=== PATIENT | male | born 1965 | race Caucasian/White ===

== ENCOUNTER 2023-03-20 13:06 | Inpatient (IN) | payer OTHER ==
[2023-03-20] MEDS ORDERED: MAGNESIUM HYDROXIDE 2,400 MG/10 ML CUP PO PRN (13:20)
[2023-03-20] MEDS ORDERED: LORazepam 1 MG TAB PO PRN (13:20)
[2023-03-20] MEDS ORDERED: haloperidoL 5 MG TAB PO PRN (13:20)
[2023-03-20] MEDS ORDERED: MAG HYDROX/AL HYDROX/SIMETH 30 ML CUP PO PRN (13:20)
[2023-03-20] MEDS ORDERED: HALOPERIDOL LACTATE 5 MG/ML 1 ML VIAL IM PRN (13:20)
[2023-03-20] MEDS: ACETAMINOPHEN TAB 325 MG TAB PO PRN (18:37)
[2023-03-20] MEDS: LORazepam 1 MG TAB PO PRN (18:42)
[2023-03-20] MEDS ORDERED: ATORVASTATIN 20 MG TAB PO SCH (21:00)
--- NOTE | 2023-03-21 00:31 | P.CONS ---
History of Present Illness - Reason for Consult Consult date: 03/21/23 - History of Present Illness The patient is a 57-year-old male with a PMH of hypertension, hyperlipidemia, EtOH abuse transferred from [facility] where the patient had presented for alcohol abuse and suspected overdose in a suicide attempt. The patient reports that he had been sober from alcohol for 7 years and had a recent relapse. He plans on staying sober. He denied tobacco or substance use. He did not wish to elaborate how much he drank. He denied any physical complaints at the time of interview. He denied experiencing chest discomfort, shortness of breath, fever, chills, cough, nausea, vomiting, abdominal pain, diarrhea. Review of systems: Pertinent positives and negatives as discussed in HPI, a complete review of systems was performed and all other systems are negative. Physical examination: General: non toxic, no distress, appears at stated age, normal weight Derm: no unusual rashes/lesions, no unusual ecchymoses, warm, dry Head: atraumatic, normocephalic, symmetric Eyes: EOMI, no lid lag, anicteric sclera ENT: Nose and ears atraumatic, no thrush, no pharyngeal erythema Neck: trachea midline, supple Mouth: no lip lesion, mucus membranes moist Cardiovascular: S1S2 reg, no murmur, no edema Lungs: CTA bilateral, no rhonchi, no rales , no accessory muscle use Abdominal: soft, nontender to palpation, no guarding Ext: no gross muscle atrophy, no contractures, Neuro: No gross focal neuro deficits noted Psych: Alert, oriented, appropriate affect Assessment: Chronic conditions: Hypertension, hyperlipidemia Alcohol abuse Overdose Plan: Strongly advised patient on importance of cessation Defer management of overdose and possible suicidal ideation to primary psychiatry service Thank you for allowing us to participate in the care of this patient. We will follow peripherally. Do not hesitate to contact us with questions. Someone can be reached from the [facility] hospitalist group at all hours of the day at [phone]. Past Medical History Past Medical History: Hypertension Additional Past Medical History / Comment(s): hernia, HTN, R knee replacement, R foot surgery History of Any Multi-Drug Resistant Organisms: None Reported Past Psychological History: Anxiety, Depression Additional Psychological History / Comment(s): clean and sober for 7 years, relaspe on Mother's Day 2022, with suicidal intent Smoking Status: Never smoker Past Alcohol Use History: Daily Additional Past Alcohol Use History / Comment(s): clean for 7 years, relapse Past Drug Use History: None Reported Medications and Allergies Home Medications Medication Instructions Recorded Confirmed Type ALPRAZolam [Xanax] 0.25 mg PO DIRECTED PRN 03/20/23 03/20/23 History Atorvastatin [Lipitor] 20 mg PO HS 03/20/23 03/20/23 History Butalb/APAP/Caff 50-325-40Mg 1 tab PO Q4H PRN 03/20/23 03/20/23 History [Fioricet 50-325-40] FLUoxetine HCL [PROzac] 20 mg PO DAILY 03/20/23 03/20/23 History HYDROcodone/APAP 5-325MG [[place] 1 tab PO Q8H PRN 03/20/23 03/20/23 History 5-325] Irbesartan 300 mg PO DAILY 03/20/23 03/20/23 History Omeprazole 20 mg PO BID 03/20/23 03/20/23 History Ondansetron Odt [Zofran Odt] 4 mg PO Q6H PRN 03/20/23 03/20/23 History Pravastatin Sodium [Pravachol] 20 mg PO DAILY 03/20/23 03/20/23 History SUMAtriptan succinate [Imitrex] 100 mg PO DAILY PRN 03/20/23 03/20/23 History Spironolactone [Aldactone] 25 mg PO DAILY 03/20/23 03/20/23 History Testosterone [Androgel 1.62%] 1 pump TRANSDERM DAILY 03/20/23 03/20/23 History Thiamine [Vitamin B-1] 100 mg PO DAILY 03/20/23 03/20/23 History amLODIPine [Norvasc] 5 mg PO DAILY 03/20/23 03/20/23 History buPROPion XL [Wellbutrin XL] 150 mg PO DAILY 03/20/23 03/20/23 History Allergies Allergy/AdvReac Type Severity Reaction Status Date / Time peanut Allergy Anaphylaxis Verified 03/20/23 15:42 Physical Exam Vitals: Vital Signs Temp Pulse Resp BP Pulse Ox 03/20/23 15:31 98 F 100 16 150/97 03/20/23 15:02 98 F 100 16 150/97 96 Intake and Output 03/20/23 03/20/23 03/21/23 14:59 22:59 06:59 Other: Weight 122.2 kg 122.2 kg
[2023-03-21 05:36] VITALS: BP 141/92; PULSE 89; RESP 18; TEMP 98.3
[2023-03-21] MEDS: ACETAMINOPHEN TAB 325 MG TAB PO PRN (05:36)
[2023-03-21] MEDS: LORazepam 1 MG TAB PO PRN (06:03)
[2023-03-21] MEDS ORDERED: NICOTINE 14MG/24HR PATCH TRANSDERM SCH (09:00)
[2023-03-21] MEDS ORDERED: amLODIPine 5 MG TAB PO SCH (09:00)
[2023-03-21] MEDS ORDERED: SPIRONOLACTONE 25 MG TAB PO SCH (09:00)
[2023-03-21] MEDS ORDERED: THIAMINE 100 MG TAB PO SCH (09:00)
[2023-03-21] MEDS ORDERED: FLUoxetine HCL 10 MG CAP PO STA (11:36)
--- NOTE | 2023-03-21 14:04 | P.HP ---
Psychiatric H&P - . H&P Date: 03/21/23 History & Physical: Allergies Allergy/AdvReac Type Severity Reaction Status Date / Time peanut Allergy Anaphylaxis Verified 03/20/23 15:42 Vital Signs Temp 98.3 F 03/21/23 05:36 Pulse 89 03/21/23 05:36 Resp 18 03/21/23 05:36 BP 141/92 03/21/23 05:36 Pulse Ox 96 03/21/23 05:36 FiO2 Intake & Output 03/20/23 03/21/23 03/21/23 18:59 06:59 18:59 Weight 122.2 kg 03/21/23 14:04 IDENTIFYING DATA: Patient is a , employed, 57-year-old male with significant history of alcohol use disorder who presents for hospital from [facility] under petition and certification for suicidal ideation and recent attempt. HPI: Patient presented to the hospital on 03/20/2023, transferred from our hospital from [facility] after a possible suicide attempt. Patient initial ly presented to [facility] in 03/19/2023 after reportedly attempting suicide by overdosing on Seroquel and alcohol. He was found outside his vehicle at his home on the ground. According to EMS, the patient was making statements earlier about wanting to harm himself while on route to the hospital. The patient was petitioned and certified and subsequently transferred to [facility]. Upon admission on to the psychiatric unit, the patient is vehemently denying any suicidal or homicidal ideation, intention, and/or plan. The patient reports that he has been increasingly stressed out in regards to his nephew who recently inherited a lot of money and property however is not competent enough to make financial decisions for himself. The patient reports that he has been increasingly stressed out because of this. He has been sober for 7 years however relapsed into drinking alcohol since Mother's Day. Prior to his admission, patient was discovered by his vehicle to be passed out. As per discussion with the patient's and daughter, the patient did not ingest any of the Zzyquil that was next to him. He did reportedly attempt to kill himself by drinking himself to on Mother's Day. The patient reports no other prior attempts at suicide. He is denying any significant symptoms of depression and is not endorsing any crying episodes, anhedonia, change in a ppetite, or change in sleep. He reports no significant symptoms of jarek or hypomania. He reports no auditory or visual hallucinations. He denies any paranoia or other delusions. Collateral information was obtained by the patient's Khushi and his daughter Viv after the patient signed a release of information. Although they do express concern for the patient's mental health and his recent relapse into alcohol use, the patient's expresses that she would prefer if the patient would continue treatment in the outpatient setting and return home. A family meeting took place over the phone when we discussed the risks, treatment alternatives, and benefits of inpatient versus outpatient treatment. The patient was counseled at great length that alcohol is a precipitant for his d epression and suicidal ideation. Patient's family also reports that the patient has no access to firearms or other weapons. PAST PSYCHIATRIC HISTORY: Patient states that he has been previously diagnosed with depression. His home medications include Wellbutrin, Xanax, and Prozac. The patient reports that this is his first inpatient psychiatric admission. Patient denies any psychiatric outpatient follow-up. He reports one prior attempt at suicide by drinking himself to on Mother's Day of this year. PMH: Past Medical History: Hypertension Additional Past Medical History / Comment(s): hernia, HTN, R knee replacement, R foot surgery History of Any Multi-Drug Resistant Organisms: None Reported Past Psychological History: Anxiety, Depression Additional Psychological History / Comment(s): clean and sober for 7 years, relaspe on Mother's Day 2022, with suicidal intent Smoking Status: Never smoker Past Alcohol Use History: Daily Additional Past Alcohol Use History / Comment(s): clean for 7 years, relapse Past Drug Use History: None Reported ALLERGIES: Peanut CHEMICAL DEPENDENCY HISTORY: The patient reports that he has been drinking up between a pint to a fifth of liquor per day since he relapsed into alcohol use . He reportedly has been sober for 7 years prior to this. This is confirmed by his . He reports no tobacco use. He denies any marijuana use. He reports no illicit drug use. FAMILY PSYCHIATRIC/SUBSTANCE USE HISTORY: The patient's brother committed suicide. SOCIAL HISTORY: Patient was born and raised in [place]. He is to his Khushi and they have 3 adult children. He denies any legal issues. He reports no history. He has his own guardian. [place] His children [place]. MENTAL STATUS EXAM: General Appearance: Patient appears to be stated age is alert, directable, and attempts to cooperate. Patient appears to have fair hygiene and grooming. Behavior: Patient is seated without any agitated behavior. Eye contact is appropriate. Speech: Patient's speech is fluent and nonpressured. Mood/Affect: Patient reports their mood is "I really don't need to be here," affect is euthymic. Suicidality/Homicidality: Patient vehemently denies any suicidal or homicidal ideation. Perceptions: Patient denies any visual hallucinations and denies any auditory hallucinations Though content/process: There is no evidence of any delusional thought content and thought process is linear and goal-directed. Memory and concentration: AOX3, grossly intact for the purposes of this session. Can spell "WORLD" backwards Judgment and insight: Fair STRENGTHS/WEAKNESSES: Strength is that the patient has a very supportive family, is gainfully employed, and has mormonism place and suicide. Weakness that patient recently relapsed into alcohol use. 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 The patient also signed an AMA form for discharge. We discussed at length the risks, benefits, and treatment alternatives of inpatient psychiatric hospitalization versus outpatient treatment. Furthermore, safety planning could occur with the patient's and daughter. The patient has no access to firearms or other weapons. The patient's reports that she would be able to supervise him. They wish to have him home for the . -The patient has protective factors against suicide including mormonism beliefs against suicide, no access to firearms or other weapons, strong supportive family. Risk factors include age and sex demographic and alcohol use. -Medications : We will increase Prozac to 30 mg by mouth daily for depression/anxiety Discussed options of starting naltrexone, acamprosate, or Antabuse. Patient is not interested in starting any medications for alcohol cessation at this time. -Ativan PRN for agitation/aggression -Patient was counselled on substance abuse and desired to cut back on use -Internal Medicine consult to perform medical evaluation and physical. -SW on board for discharge planning. Encourage patient to participate in groups to work on coping skills. -After significant discussion with the patient and his family. We will discharge the patient in order to encourage patient autonomy and after significant safety planning did occur. 03/21/23 14:04
--- NOTE | 2023-03-21 14:09 | P.DS ---
Providers Date of admission: 03/20/23 14:26 Expected date of discharge: 03/21/23 Attending physician: Pepe Coon MD Consults: 03/20/23 18:09 Consult Physician Routine Consulting Provider: Vanessa Parker Consult Reason/Comments: H & P and medication/medical management Do you want consulting provider notified?: Already Contacted Primary care physician: Stated None - Discharge Diagnosis(es) (1) Alcohol-induced depressive disorder with onset during intoxication Current Visit: Yes Status: Acute Priority: High (2) Adjustment disorder with mixed anxiety and depressed mood Current Visit: Yes Status: Acute Priority: High (3) Alcohol use disorder Current Visit: Yes Status: Acute Priority: High Hospital Course: Admission HPI: Patient is a , employed, 57-year-old male with significant history of alcohol use disorder who presents for hospital from [facility] under petition and certification for suicidal ideation and recent attempt. Patient presented to the hospital on 03/20/2023, transferred from our hospital from [facility] after a possible suicide attempt. Patient initially presented to [facility] in 03/19/2023 after reportedly attempting suicide by overdosing on Seroquel and alcohol. He was found outside his vehicle at his home on the ground. According to EMS, the patient was making statements earlier about wanting to harm himself while on route to the hospital. The patient was petitioned and certified and subsequently transferred to [facility]. Upon admission on to the psychiatric unit, the patient is vehemently denying any suicidal or homicidal ideation, intention, and/or plan. The patient reports that he has been increasingly stressed out in regards to his nephew who recently inherited a lot of money and property however is not competent enough to make financial decisions for himself. The patient reports that he has been increasingly stressed out because of this. He has been sober for 7 years however relapsed into drinking alcohol since Mother's Day. Prior to his admission, patient was discovered by his vehicle to be passed out. As per discussion with the patient's and daughter, the patient did not ingest any of the Zzyquil that was next to him. He did reportedly attempt to kill himself by drinking himself to on Mother's Day. The patient reports no other prior attempts at suicide. He is denying any significant symptoms of depression and is not endorsing any crying episodes, anhedonia, change in appetite, or change in sleep. He reports no significant symptoms of jarek or hypomania. He reports no auditory or visual hallucinations. He denies any paranoia or other delusions. Collateral information was obtained by the patient's Khushi and his daughter Viv after the patient signed a release of information. Although they do express concern for the patient's mental health and his recent relapse into alcohol use, the patient's expresses that she would prefer if the patient would continue treatment in the outpatient setting and return home. A family meeting took place over the phone when we discussed the risks, treatment alternatives, and benefits of inpatient versus outpatient treatment. The patient was counseled at great length that alcohol is a precipitant for his depression and suicidal ideation. Patient's family also reports that the patient has no access to firearms or other weapons. Patient states that he has been previously diagnosed with depression. His home medications include Wellbutrin, Xanax, and Prozac. The patient reports that this is his first inpatient psychiatric admission. Patient denies any psychiatric outpatient follow-up. He reports one prior attempt at suicide by drinking himself to on Mother's Day of this year. Hospital course: Upon admission to the unit patient was initially presented as euthymic however minimized his symptoms of depression and recent suicide attempt. Patient however was agreeable to starting medications. He was continued on his Prozac which was increased and his Wellbutrin was discontinued due to risk for seizure. The patient expresses strong desire for discharge. After been converted to a voluntary admission, the patient signed AMA. Collateral information was obtained by the patient's and daughter. They report that the patient did not overdose on any of the Zzquil however has relapsed into heavy alcohol use. The patient's reports that she is able to supervise him and would prefer that he return home and continue treatment in the outpatient setting. The risks, benefits, and alternatives of treatment were discussed with the patient and his family. In order to maintain patient autonomy, the patient was granted discharge today. The patient and his family were also educated at great length on his risk factors for suicide which include alcohol, age and gender demographic, and ongoing stressors. The patient acknowledges that alcohol is the precipitant. The family and the patient wished to pursue treatment in the outpatient setting. Mental status exam: General Appearance: Patient appears to be stated age is alert, directable, and attempts to cooperate. Patient appears to have fair hygiene and grooming. Behavior: Patient is seated without any agitated behavior. Eye contact is appropriate. Speech: Patient's speech is fluent and nonpressured. Mood/Affect: Patient reports their mood is "I really don't need to be here," affect is euthymic. Suicidality/Homicidality: Patient vehemently denies any suicidal or homicidal ideation. Perceptions: Patient denies any visual hallucinations and denies any auditory hallucinations Though content/process: There is no evidence of any delusional thought content and thought process is linear and goal-directed. Memory and concentration: AOX3, grossly intact for the purposes of this session. Can spell "WORLD" backwards Judgment and insight: Fair Impression: Alcohol-induced depressive disorder Adjustment disorder with depressed mood and anxiety Alcohol use disorder Plan: -Continue with discharge today as patient has improved and stabilized psychiatrically and is not currently an imminent threat to himself and/or others. Patient will remain at chronically elevated risk for harm to self and/or others due to his impulsivity and alcohol abuse. -Continue medications: Prozac 30 mg daily for depression/anxiety -Patient was counseled on the need for medication compliance and appropriate follow-up at mental health and also primary care for medical issues. Patient verbalized understanding and agreed. -The patient has protective factors against suicide including religion beliefs against suicide, no access to firearms or other weapons, strong supportive family. Risk factors include age and sex demographic and alcohol use. -Social work to arrange for and conduct family meeting to ensure safety upon discharge and answer any questions/concerns. Social work also to arrange for patients follow up appointments for psychiatric care along with follow up with primary care provider. -Patient counseled on abstaining from recreational drugs and marijuana and alcohol. Was informed/educated on the adverse effects on their physical and mental health. Patient verbally agreed and understood. Patient was offered substance abuse treatment however declined at this time. -Patient was instructed to return to the hospital or seek immediate medical care if their psychiatric or medical symptoms do worsen or reoccur. -Psychoeducation and supportive therapy provided to patient. Risks and benefits of pharmacological treatment versus the risks and benefits of nontreatment weighed and discussed. Informed consent discussion held. Common side effects of psychotropics discussed such as, but not limited to headache, GI disturbance, sexual dysfunction, movement disorders, sedation, and orthostatic hypotension. Life threatening and blackbox warnings of prescribed medications also discussed. Potential risks of operating a vehicle or heavy machinery discussed with patient at length. Advised on importance of compliance and a reliable and responsible manner. Patient advised to review FDA consumer labeling of all medications prior to taking. Patient verbalized understanding of potential risks, and agrees with current treatment plan. Patient advised to medically contact physician/emergency personnel if any acute changes in condition occur. Vital Signs Temp 98.3 F 03/21/23 05:36 Pulse 89 03/21/23 05:36 Resp 18 03/21/23 05:36 BP 141/92 03/21/23 05:36 Pulse Ox 96 03/21/23 05:36 FiO2 Intake & Output 03/20/23 03/21/23 03/21/23 18:59 06:59 18:59 Weight 122.2 kg Allergies Allergy/AdvReac Type Severity Reaction Status Date / Time peanut Allergy Anaphylaxis Verified 03/20/23 15:42 Patient Condition at Discharge: Stable Plan - Discharge Summary Discharge Rx Participant: Yes New Discharge Prescriptions: New FLUoxetine HCL [PROzac] 30 mg PO DAILY 30 Days #90 cap Continue Spironolactone [Aldactone] 25 mg PO DAILY Thiamine [Vitamin B-1] 100 mg PO DAILY Testosterone [Androgel 1.62%] 1 pump TRANSDERM DAILY Pravastatin Sodium [Pravachol] 20 mg PO DAILY Irbesartan 300 mg PO DAILY Atorvastatin [Lipitor] 20 mg PO HS amLODIPine [Norvasc] 5 mg PO DAILY SUMAtriptan succinate [Imitrex] 100 mg PO DAILY PRN PRN Reason: Migraine Headache Ondansetron Odt [Zofran ODT] 4 mg PO Q6H PRN PRN Reason: Nausea Omeprazole 20 mg PO BID Butalb/APAP/Caff 50-325-40Mg [Fioricet 50-325-40] 1 tab PO Q4H PRN PRN Reason: Migraine Headache ALPRAZolam [Xanax] 0.25 mg PO DIRECTED PRN PRN Reason: 1 hour prior to MRI Discontinued buPROPion XL [Wellbutrin XL] 150 mg PO DAILY HYDROcodone/APAP 5-325MG [[place] 5-325] 1 tab PO Q8H PRN PRN Reason: Pain FLUoxetine HCL [PROzac] 20 mg PO DAILY Discharge Medication List ALPRAZolam [Xanax] 0.25 mg PO DIRECTED PRN 03/20/23 [History] Atorvastatin [Lipitor] 20 mg PO HS 03/20/23 [History] Butalb/APAP/Caff 50-325-40Mg [Fioricet 50-325-40] 1 tab PO Q4H PRN 03/20/23 [History] Irbesartan 300 mg PO DAILY 03/20/23 [History] Omeprazole 20 mg PO BID 03/20/23 [History] Ondansetron Odt [Zofran ODT] 4 mg PO Q6H PRN 03/20/23 [History] Pravastatin Sodium [Pravachol] 20 mg PO DAILY 03/20/23 [History] SUMAtriptan succinate [Imitrex] 100 mg PO DAILY PRN 03/20/23 [History] Spironolactone [Aldactone] 25 mg PO DAILY 03/20/23 [History] Testosterone [Androgel 1.62%] 1 pump TRANSDERM DAILY 03/20/23 [History] Thiamine [Vitamin B-1] 100 mg PO DAILY 03/20/23 [History] amLODIPine [Norvasc] 5 mg PO DAILY 03/20/23 [History] FLUoxetine HCL [PROzac] 30 mg PO DAILY 30 Days #90 cap 03/21/23 [Rx] Activity/Diet/Wound Care/Special Instructions: Avoid the use of street drugs and alcohol. Take all medications as prescribed. When you are in need of refills on your medications, please contact your medical provider and/or outpatient psychiatrist to have this done. Please go to scheduled outpatient appointments for aftercare treatment. If symptoms return or become worse, call the crisis line at and/or go to the nearest emergency room for evaluation. Discharge Disposition: HOME SELF-CARE
[2023-03-22] MEDS ORDERED: FLUoxetine HCL 10 MG CAP PO SCH (09:00)
== END 2023-03-21 17:55 | disposition home or self-care (01) | DRG 897 ==
LOC: 3MHU 14:26
PROVIDERS: ADMIT Psychiatry & Neurology Psychiatry; ATTEND Psychiatry & Neurology Psychiatry
DX: F10.229 Alcohol dependence with intoxication, unspecified (principal); R45.851 Suicidal ideations; F10.24 Alcohol dependence with alcohol-induced mood disorder; Z71.41 Alcohol abuse counseling and surveillance of alcoholic; Z91.010 Allergy to peanuts; F43.23 Adjustment disorder with mixed anxiety and depressed mood; Z87.19 Personal history of other diseases of the digestive system; Z96.651 Presence of right artificial knee joint

== ENCOUNTER 2023-08-29 12:30 | Emergency (ER) | payer OTHER ==
[2023-08-29 13:23] VITALS: RESP 18; TEMP 97.2
--- NOTE | 2023-08-29 13:35 | ED ---
Psych HPI <Frankie Rojas - Last Filed: 08/31/23 11:44> - General Source: police, RN notes reviewed, old records reviewed Mode of arrival: EMS Limitations: no limitations - History of Present Illness MD Complaint: suicidal ideation, feels depressed, altered mental status -: unknown Associated Psychiatric Symptoms: depression, suicidal ideation, homicidal ideation, racing thoughts History of same: Yes Quality: constant Improves With: none, medication Context: recent alcohol abuse Associated Symptoms: denies other symptoms Treatments Prior to Arrival: placed on mental health hold If Self Harm: admits thoughts of self harm <Frankie Palacios - Last Filed: 09/02/23 03:33> - General Chief Complaint: Psychiatric Symptoms Stated Complaint: Petitioned Time Seen by Provider: 08/29/23 12:40 - History of Present Illness Initial Comments: This is a 57-year-old male to the ER for evaluation today. Patient presents today for evaluation regards to psychiatric illness. Patient was found to be possibly passed out at his house outside. He states he was cutting his lawn but EMS found patient on the ground. Patient was difficult to arouse and respond so they ended up bringing the patient into be significantly violent during trans port. Patient was difficult to redirect, states that he has been making suicidal threats as well as she is at concern for herself forever she is around him (Frankie Palacios) - Related Data Home Medications Medication Instructions Recorded Confirmed Irbesartan 300 mg PO DAILY 03/20/23 08/29/23 Omeprazole 20 mg PO BID 03/20/23 08/29/23 Pravastatin Sodium [Pravachol] 20 mg PO DAILY 03/20/23 08/29/23 SUMAtriptan succinate [Imitrex] 100 mg PO DAILY PRN 03/20/23 08/29/23 Spironolactone [Aldactone] 25 mg PO DAILY 03/20/23 08/29/23 Testosterone [Androgel 1.62%] 2 pump TOPICAL DAILY 03/20/23 08/29/23 amLODIPine [Norvasc] 5 mg PO DAILY 03/20/23 08/29/23 FLUoxetine HCL [PROzac] 40 mg PO DAILY 08/29/23 08/29/23 Metoclopramide [Reglan] 5 mg PO TID PRN 08/29/23 08/29/23 Propranolol [Inderal] 20 mg PO BID 08/29/23 08/29/23 Topiramate [Topamax] 50 mg PO BID 08/29/23 08/29/23 buPROPion XL [Wellbutrin XL] 150 mg PO DAILY 08/29/23 08/29/23 modafiniL [Provigil] 100 mg PO DAILY 08/29/23 08/29/23 Allergies Allergy/AdvReac Type Severity Reaction Status Date / Time peanut Allergy Anaphylaxis Verified 08/29/23 15:48 Review of Systems ROS Other: All systems not noted in ROS Statement are negative. <Frankie Rojas - Last Filed: 08/31/23 11:44> ROS Other: All systems not noted in ROS Statement are negative. <Frankie Palacios - Last Filed: 09/02/23 03:33> ROS Statement: Those systems with pertinent positive or pertinent negative responses have been documented in the HPI. Past Medical History Past Medical History: Hypertension Additional Past Medical History / Comment(s): hernia, HTN, R knee replacement, R foot surgery History of Any Multi-Drug Resistant Organisms: None Reported Past Psychological History: Anxiety, Depression Smoking Status: Never smoker Past Alcohol Use History: Daily Past Drug Use History: None Reported <Frankie Palacios - Last Filed: 09/02/23 03:33> General Exam Limitations: altered mental status General appearance: alert, in no apparent distress Head exam: Present: atraumatic, normocephalic, normal inspection Eye exam: Present: normal appearance, PERRL, EOMI. Absent: scleral icterus, conjunctival injection, periorbital swelling ENT exam: Present: normal exam, mucous membranes moist Neck exam: Present: normal inspection. Absent: tenderness, meningismus, lymphadenopathy Respiratory exam: Present: normal lung sounds bilaterally. Absent: respiratory distress, wheezes, rales, rhonchi, stridor Cardiovascular Exam: Present: regular rate, normal rhythm, normal heart sounds. Absent: systolic murmur, diastolic murmur, rubs, gallop, clicks GI/Abdominal exam: Present: soft, normal bowel sounds. Absent: distended, tenderness, guarding, rebound, rigid Extremities exam: Present: normal inspection, full ROM, normal capillary refill. Absent: tenderness, pedal edema, joint swelling, calf tenderness Back exam: Present: normal inspection Neurological exam: Present: alert, oriented X3, CN II-XII intact Psychiatric exam: Present: normal affect, normal mood Skin exam: Present: warm, dry, intact, normal color. Absent: rash <Frankie Palacios - Last Filed: 09/02/23 03:33> Course <Frankie Palacios - Last Filed: 09/02/23 03:33> Vital Signs 08/29/23 08/30/23 08/30/23 12:32 08:00 11:00 Temperature 97.2 F L Pulse Rate 96 93 Respiratory 18 18 18 Rate Blood Pressure 150/104 143/81 O2 Sat by Pulse 98 97 Oximetry 08/30/23 08/30/23 08/30/23 12:00 13:41 15:04 Temperature Pulse Rate 93 90 77 Respiratory 18 18 18 Rate Blood Pressure 121/58 O2 Sat by Pulse 98 97 98 Oximetry 08/30/23 08/30/23 08/30/23 16:12 16:35 18:00 Temperature Pulse Rate 81 80 77 Respiratory 18 18 18 Rate Blood Pressure 152/89 O2 Sat by Pulse 98 97 Oximetry 08/30/23 08/31/23 08/31/23 18:58 03:59 09:28 Temperature Pulse Rate 71 68 87 Respiratory 18 18 18 Rate Blood Pressure 134/77 118/75 O2 Sat by Pulse 97 95 Oximetry - Reevaluation(s) Reevaluation #1: 08/29/23 15:21 Medical records reviewed (Frankie Palacios) Procedures - Restraint - Face to Face Restraint Occurrence 1 Patient's Immediate Situation: Endangers self safety, Endangers others' safety, Endangers staff safety, Violent behavior Patient's Reaction to the Intervention: Uncooperative, Angry, Hostile, Belligerent Patient's Medical & Behavioral Condition: Awake Need to Continue or Terminate Restraint or Seclusion: Continue Face to Face Eval of Restraint Date: 08/29/23 Face to Face Eval of Restraint Time: 12:45 <Frankie Palacios - Last Filed: 09/02/23 03:33> Medical Decision Making - Lab Data Result diagrams: 08/29/23 15:37 08/31/23 06:38 <Frankie Rojas - Last Filed: 08/31/23 11:44> - Lab Data Result diagrams: 08/29/23 15:37 08/31/23 06:38 - EKG Data -: EKG Interpreted by Me (EKG is sinus tachycardia 103 NM 200 QRS 106 QTC 393) <Frankie Palacios - Last Filed: 09/02/23 03:33> - Medical Decision Making Was patient admitted / discharged? Hospital course, mention meds given and route, prescriptions, significant lab abnormalities, going to OR and other pertinent info. @ -She was evaluated by the psychiatric team and they determined the patient n eeded to be admitted patient will be transferred to a facility outside hospital Undiagnosed new problem with uncertain prognosis? @ -[No] Drug Therapy requiring intensive monitoring for toxicity (Heparin, Nitro, Insulin, Cardizem)? @ -[No] Were any procedures done? @ -[No] Diagnosis/symptom? @ -Ideations, alcohol intoxication, alcohol abuse Acute, or Chronic, or Acute on Chronic? @ -Acute Uncomplicated (without systemic symptoms) or Complicated (systemic symptoms)? @ -[default] Side effects of treatment? @ -[No] Exacerbation, Progression, or Severe Exacerbation? @ -[No] Poses a threat to life or bodily function? How? (Chest pain, USA, LA, pneumonia, PE, COPD, DKA, ARF, appy, cholecystitis, CVA, Diverticulitis, Homicidal, Suicidal, threat to staff... and all critical care pts) @ -[No] I filled out a clinical certification for this patient so that he could be transferred to a psychiatric facility for suicidal ideations. (Frankie Rojas) - Lab Data Lab Results 08/29/23 08/29/23 08/29/23 Range/Units 15:37 15:37 15:37 WBC 12.1 H (3.8-10.6) k/uL RBC 5.14 (4.30-5.90) m/uL Hgb 15.7 (13.0-17.5) gm/dL Hct 45.9 (39.0-53.0) % MCV 89.3 (80.0-100.0) fL MCH 30.6 (25.0-35.0) pg MCHC 34.3 (31.0-37.0) g/dL RDW 12.5 (11.5-15.5) % Plt Count 404 (150-450) k/uL MPV 6.6 Neutrophils % 80 % Lymphocytes % 15 % Monocytes % 4 % Eosinophils % 1 % Basophils % 0 % Neutrophils # 9.6 H (1.3-7.7) k/uL Lymphocytes # 1.8 (1.0-4.8) k/uL Monocytes # 0.4 (0-1.0) k/uL Eosinophils # 0.2 (0-0.7) k/uL Basophils # 0.0 (0-0.2) k/uL PT 10.8 (10.0-12.5) sec INR 1.0 (<1.2) APTT 22.4 (22.0-30.0) sec Sodium 137 (137-145) mmol/L Potassium 4.0 (3.5-5.1) mmol/L Chloride 100 (98-107) mmol/L Carbon Dioxide 19 L (22-30) mmol/L Anion Gap 18 mmol/L BUN 17 (9-20) mg/dL Creatinine 0.90 (0.66-1.25) mg/dL Est GFR (CKD-EPI)AfAm >90 (>60 ml/min/1.73 sqM) Est GFR (CKD-EPI)NonAf >90 (>60 ml/min/1.73 sqM) Glucose 126 H (74-99) mg/dL Lactic Ac Sepsis Rflx Plasma Lactic Acid Wily (0.7-2.0) mmol/L Calcium 9.5 (8.4-10.2) mg/dL Phosphorus 3.6 (2.5-4.5) mg/dL Magnesium 1.8 (1.6-2.3) mg/dL Total Bilirubin 0.7 (0.2-1.3) mg/dL AST 30 (17-59) U/L ALT 29 (4-49) U/L Alkaline Phosphatase 93 (38-126) U/L Troponin I (0.000-0.034) ng/mL Total Protein 7.7 (6.3-8.2) g/dL Albumin 4.7 (3.5-5.0) g/dL Urine Color Urine Appearance (Clear) Urine pH (5.0-8.0) Ur Specific [place] (1.001-1.035) Urine Protein (Negative) Urine Glucose (UA) (Negative) Urine Ketones (Negative) Urine Blood (Negative) Urine Nitrite (Negative) Urine Bilirubin (Negative) Urine Urobilinogen (<2.0) mg/dL Ur Leukocyte Esterase (Negative) Urine WBC (0-5) /hpf Calcium Oxalate Crystal (None) /hpf Urine Mucus (None) /hpf Urine Opiates Screen (NotDetected) Ur Oxycodone Screen (NotDetected) Urine Methadone Screen (NotDetected) Ur Propoxyphene Screen (NotDetected) Ur Barbiturates Screen (NotDetected) U Tricyclic Antidepress (NotDetected) Ur Phencyclidine Scrn (NotDetected) Ur Amphetamines Screen (NotDetected) U Methamphetamines Scrn (NotDetected) U Benzodiazepines Scrn (NotDetected) Urine Cocaine Screen (NotDetected) U Marijuana (THC) Screen (NotDetected) Serum Alcohol 137 mg/dL Coronavirus (PCR) (Not Detectd) 08/29/23 08/29/23 08/29/23 Range/Units 15:37 15:37 15:37 WBC (3.8-10.6) k/uL RBC (4.30-5.90) m/uL Hgb (13.0-17.5) gm/dL Hct (39.0-53.0) % MCV (80.0-100.0) fL MCH (25.0-35.0) pg MCHC (31.0-37.0) g/dL RDW (11.5-15.5) % Plt Count (150-450) k/uL MPV Neutrophils % % Lymphocytes % % Monocytes % % Eosinophils % % Basophils % % Neutrophils # (1.3-7.7) k/uL Lymphocytes # (1.0-4.8) k/uL Monocytes # (0-1.0) k/uL Eosinophils # (0-0.7) k/uL Basophils # (0-0.2) k/uL PT (10.0-12.5) sec INR (<1.2) APTT (22.0-30.0) sec Sodium (137-145) mmol/L Potassium (3.5-5.1) mmol/L Chloride (98-107) mmol/L Carbon Dioxide (22-30) mmol/L Anion Gap mmol/L BUN (9-20) mg/dL Creatinine (0.66-1.25) mg/dL Est GFR (CKD-EPI)AfAm (>60 ml/min/1.73 sqM) Est GFR (CKD-EPI)NonAf (>60 ml/min/1.73 sqM) Glucose (74-99) mg/dL Lactic Ac Sepsis Rflx Plasma Lactic Acid Wily 4.4 H* (0.7-2.0) mmol/L Calcium (8.4-10.2) mg/dL Phosphorus (2.5-4.5) mg/dL Magnesium (1.6-2.3) mg/dL Total Bilirubin (0.2-1.3) mg/dL AST (17-59) U/L ALT (4-49) U/L Alkaline Phosphatase (38-126) U/L Troponin I 0.013 (0.000-0.034) ng/mL Total Protein (6.3-8.2) g/dL Albumin (3.5-5.0) g/dL Urine Color Urine Appearance (Clear) Urine pH (5.0-8.0) Ur Specific [place] (1.001-1.035) Urine Protein (Negative) Urine Glucose (UA) (Negative) Urine Ketones (Negative) Urine Blood (Negative) Urine Nitrite (Negative) Urine Bilirubin (Negative) Urine Urobilinogen (<2.0) mg/dL Ur Leukocyte Esterase (Negative) Urine WBC (0-5) /hpf Calcium Oxalate Crystal (None) /hpf Urine Mucus (None) /hpf Urine Opiates Screen (NotDetected) Ur Oxycodone Screen (NotDetected) Urine Methadone Screen (NotDetected) Ur Propoxyphene Screen (NotDetected) Ur Barbiturates Screen (NotDetected) U Tricyclic Antidepress (NotDetected) Ur Phencyclidine Scrn (NotDetected) Ur Amphetamines Screen (NotDetected) U Methamphetamines Scrn (NotDetected) U Benzodiazepines Scrn (NotDetected) Urine Cocaine Screen (NotDetected) U Marijuana (THC) Screen (NotDetected) Serum Alcohol mg/dL Coronavirus (PCR) Not Detected (Not Detectd) 08/29/23 08/29/23 08/30/23 Range/Units 16:12 17:10 00:42 WBC (3.8-10.6) k/uL RBC (4.30-5.90) m/uL Hgb (13.0-17.5) gm/dL Hct (39.0-53.0) % MCV (80.0-100.0) fL MCH (25.0-35.0) pg MCHC (31.0-37.0) g/dL RDW (11.5-15.5) % Plt Count (150-450) k/uL MPV Neutrophils % % Lymphocytes % % Monocytes % % Eosinophils % % Basophils % % Neutrophils # (1.3-7.7) k/uL Lymphocytes # (1.0-4.8) k/uL Monocytes # (0-1.0) k/uL Eosinophils # (0-0.7) k/uL Basophils # (0-0.2) k/uL PT (10.0-12.5) sec INR (<1.2) APTT (22.0-30.0) sec Sodium (137-145) mmol/L Potassium (3.5-5.1) mmol/L Chloride (98-107) mmol/L Carbon Dioxide (22-30) mmol/L Anion Gap mmol/L BUN (9-20) mg/dL Creatinine (0.66-1.25) mg/dL Est GFR (CKD-EPI)AfAm (>60 ml/min/1.73 sqM) Est GFR (CKD-EPI)NonAf (>60 ml/min/1.73 sqM) Glucose (74-99) mg/dL Lactic Ac Sepsis Rflx Y Plasma Lactic Acid Wily 2.5 H* (0.7-2.0) mmol/L Calcium (8.4-10.2) mg/dL Phosphorus (2.5-4.5) mg/dL Magnesium (1.6-2.3) mg/dL Total Bilirubin (0.2-1.3) mg/dL AST (17-59) U/L ALT (4-49) U/L Alkaline Phosphatase (38-126) U/L Troponin I <0.012 (0.000-0.034) ng/mL Total Protein (6.3-8.2) g/dL Albumin (3.5-5.0) g/dL Urine Color Urine Appearance (Clear) Urine pH (5.0-8.0) Ur Specific [place] (1.001-1.035) Urine Protein (Negative) Urine Glucose (UA) (Negative) Urine Ketones (Negative) Urine Blood (Negative) Urine Nitrite (Negative) Urine Bilirubin (Negative) Urine Urobilinogen (<2.0) mg/dL Ur Leukocyte Esterase (Negative) Urine WBC (0-5) /hpf Calcium Oxalate Crystal (None) /hpf Urine Mucus (None) /hpf Urine Opiates Screen (NotDetected) Ur Oxycodone Screen (NotDetected) Urine Methadone Screen (NotDetected) Ur Propoxyphene Screen (NotDetected) Ur Barbiturates Screen (NotDetected) U Tricyclic Antidepress (NotDetected) Ur Phencyclidine Scrn (NotDetected) Ur Amphetamines Screen (NotDetected) U Methamphetamines Scrn (NotDetected) U Benzodiazepines Scrn (NotDetected) Urine Cocaine Screen (NotDetected) U Marijuana (THC) Screen (NotDetected) Serum Alcohol mg/dL Coronavirus (PCR) (Not Detectd) 08/30/23 08/30/23 08/30/23 Range/Units 01:34 04:17 05:44 WBC (3.8-10.6) k/uL RBC (4.30-5.90) m/uL Hgb (13.0-17.5) gm/dL Hct (39.0-53.0) % MCV (80.0-100.0) fL MCH (25.0-35.0) pg MCHC (31.0-37.0) g/dL RDW (11.5-15.5) % Plt Count (150-450) k/uL MPV Neutrophils % % Lymphocytes % % Monocytes % % Eosinophils % % Basophils % % Neutrophils # (1.3-7.7) k/uL Lymphocytes # (1.0-4.8) k/uL Monocytes # (0-1.0) k/uL Eosinophils # (0-0.7) k/uL Basophils # (0-0.2) k/uL PT (10.0-12.5) sec INR (<1.2) APTT (22.0-30.0) sec Sodium (137-145) mmol/L Potassium (3.5-5.1) mmol/L Chloride (98-107) mmol/L Carbon Dioxide (22-30) mmol/L Anion Gap mmol/L BUN (9-20) mg/dL Creatinine (0.66-1.25) mg/dL Est GFR (CKD-EPI)AfAm (>60 ml/min/1.73 sqM) Est GFR (CKD-EPI)NonAf (>60 ml/min/1.73 sqM) Glucose (74-99) mg/dL Lactic Ac Sepsis Rflx Y Y Plasma Lactic Acid Wily 2.2 H* (0.7-2.0) mmol/L Calcium (8.4-10.2) mg/dL Phosphorus (2.5-4.5) mg/dL Magnesium (1.6-2.3) mg/dL Total Bilirubin (0.2-1.3) mg/dL AST (17-59) U/L ALT (4-49) U/L Alkaline Phosphatase (38-126) U/L Troponin I (0.000-0.034) ng/mL Total Protein (6.3-8.2) g/dL Albumin (3.5-5.0) g/dL Urine Color Urine Appearance (Clear) Urine pH (5.0-8.0) Ur Specific [place] (1.001-1.035) Urine Protein (Negative) Urine Glucose (UA) (Negative) Urine Ketones (Negative) Urine Blood (Negative) Urine Nitrite (Negative) Urine Bilirubin (Negative) Urine Urobilinogen (<2.0) mg/dL Ur Leukocyte Esterase (Negative) Urine WBC (0-5) /hpf Calcium Oxalate Crystal (None) /hpf Urine Mucus (None) /hpf Urine Opiates Screen (NotDetected) Ur Oxycodone Screen (NotDetected) Urine Methadone Screen (NotDetected) Ur Propoxyphene Screen (NotDetected) Ur Barbiturates Screen (NotDetected) U Tricyclic Antidepress (NotDetected) Ur Phencyclidine Scrn (NotDetected) Ur Amphetamines Screen (NotDetected) U Methamphetamines Scrn (NotDetected) U Benzodiazepines Scrn (NotDetected) Urine Cocaine Screen (NotDetected) U Marijuana (THC) Screen (NotDetected) Serum Alcohol mg/dL Coronavirus (PCR) (Not Detectd) 08/30/23 08/30/23 08/31/23 Range/Units 06:57 06:57 06:38 WBC (3.8-10.6) k/uL RBC (4.30-5.90) m/uL Hgb (13.0-17.5) gm/dL Hct (39.0-53.0) % MCV (80.0-100.0) fL MCH (25.0-35.0) pg MCHC (31.0-37.0) g/dL RDW (11.5-15.5) % Plt Count (150-450) k/uL MPV Neutrophils % % Lymphocytes % % Monocytes % % Eosinophils % % Basophils % % Neutrophils # (1.3-7.7) k/uL Lymphocytes # (1.0-4.8) k/uL Monocytes # (0-1.0) k/uL Eosinophils # (0-0.7) k/uL Basophils # (0-0.2) k/uL PT (10.0-12.5) sec INR (<1.2) APTT (22.0-30.0) sec Sodium 135 L (137-145) mmol/L Potassium 4.3 (3.5-5.1) mmol/L Chloride 102 (98-107) mmol/L Carbon Dioxide 21 L (22-30) mmol/L Anion Gap 12 mmol/L BUN 19 (9-20) mg/dL Creatinine 0.74 (0.66-1.25) mg/dL Est GFR (CKD-EPI)AfAm >90 (>60 ml/min/1.73 sqM) Est GFR (CKD-EPI)NonAf >90 (>60 ml/min/1.73 sqM) Glucose 95 (74-99) mg/dL Lactic Ac Sepsis Rflx Plasma Lactic Acid Wily (0.7-2.0) mmol/L Calcium 9.3 (8.4-10.2) mg/dL Phosphorus (2.5-4.5) mg/dL Magnesium (1.6-2.3) mg/dL Total Bilirubin 0.9 (0.2-1.3) mg/dL AST 31 (17-59) U/L ALT 29 (4-49) U/L Alkaline Phosphatase 96 (38-126) U/L Troponin I (0.000-0.034) ng/mL Total Protein 6.9 (6.3-8.2) g/dL Albumin 4.1 (3.5-5.0) g/dL Urine Color Yellow Urine Appearance Cloudy (Clear) Urine pH 5.5 (5.0-8.0) Ur Specific [place] 1.026 (1.001-1.035) Urine Protein Trace H (Negative) Urine Glucose (UA) Negative (Negative) Urine Ketones Trace H (Negative) Urine Blood Negative (Negative) Urine Nitrite Negative (Negative) Urine Bilirubin Negative (Negative) Urine Urobilinogen <2.0 (<2.0) mg/dL Ur Leukocyte Esterase Negative (Negative) Urine WBC 2 (0-5) /hpf Calcium Oxalate Crystal Rare H (None) /hpf Urine Mucus Few H (None) /hpf Urine Opiates Screen Detected H (NotDetected) Ur Oxycodone Screen Not Detected (NotDetected) Urine Methadone Screen Not Detected (NotDetected) Ur Propoxyphene Screen Not Detected (NotDetected) Ur Barbiturates Screen Not Detected (NotDetected) U Tricyclic Antidepress Not Detected (NotDetected) Ur Phencyclidine Scrn Not Detected (NotDetected) Ur Amphetamines Screen Not Detected (NotDetected) U Methamphetamines Scrn Not Detected (NotDetected) U Benzodiazepines Scrn Detected H (NotDetected) Urine Cocaine Screen Not Detected (NotDetected) U Marijuana (THC) Screen Not Detected (NotDetected) Serum Alcohol mg/dL Coronavirus (PCR) (Not Detectd) Disposition Time of Disposition: 11:46 <Frankie Rojas - Last Filed: 08/31/23 11:44> <Frankie Palacios - Last Filed: 09/02/23 03:33> Clinical Impression: Suicidal ideation, Alcohol intoxication, Alcohol abuse Disposition: TRANSFER TO PSYCH HOSP/UNIT Referrals: Kiersten Griffin MD [Primary Care Provider] - 1-2 days
[2023-08-29] MEDS ORDERED: SODIUM CHLORIDE 0.9% 1,000 ML IV STA ×2 (15:07→16:21)
[2023-08-29] MEDS ORDERED: MORPHINE SULFATE 4 MG/ML SYRINGE IV STA (15:07)
[2023-08-29 15:49] LABS: Basophils % (A) 0 %; Eosinophils # (A) 0.2 k/uL (0-0.7); Eosinophils % (A) 1 %; HCT 45.9 % (39.0-53.0); HGB 15.7 gm/dL (13.0-17.5); Lymphocytes # (A) 1.8 k/uL (1.0-4.8); Lymphocytes % (A) 15 %; MCH 30.6 pg (25.0-35.0); MCHC 34.3 g/dL (31.0-37.0); MCV 89.3 fL (80.0-100.0); Mean Platelet Volume 6.6; Monocytes # (A) 0.4 k/uL (0-1.0); Monocytes % (A) 4 %; Neutrophils # (A) 9.6 k/uL (1.3-7.7); Neutrophils % (A) 80 %; Platelet Count 404 k/uL (150-450); RBC 5.14 m/uL (4.30-5.90); RDW 12.5 % (11.5-15.5); WBC 12.1 k/uL (3.8-10.6)
[2023-08-29 16:01] LABS: ALT 29 U/L (4-49); AST 30 U/L (17-59); African American GFR (CKD) >90 (>60 ml/min/1.73 sqM); Albumin 4.7 g/dL (3.5-5.0); Alkaline Phosphatase 93 U/L (38-126); Anion Gap 18 mmol/L; Blood Urea Nitrogen 17 mg/dL (9-20); Calcium 9.5 mg/dL (8.4-10.2); Carbon Dioxide 19 mmol/L (22-30); Chloride 100 mmol/L (98-107); Glucose 126 mg/dL (74-99); Magnesium 1.8 mg/dL (1.6-2.3); Non-African American GFR(CKD) >90 (>60 ml/min/1.73 sqM); Phosphorus 3.6 mg/dL (2.5-4.5); Sodium 137 mmol/L (137-145); Total Bilirubin 0.7 mg/dL (0.2-1.3); Total Protein 7.7 g/dL (6.3-8.2)
[2023-08-29 16:07] LABS: Alcohol 137 mg/dL
[2023-08-29 16:20] LABS: Partial Thromboplastin Time 22.4 sec (22.0-30.0); Prothrombin Time 10.8 sec (10.0-12.5)
[2023-08-29] MEDS ORDERED: KETOROLAC 15 MG/ML 1 ML VIAL IVP STA (16:24)
[2023-08-29] MEDS ORDERED: PROCHLORPERAZINE INJ 10 MG/2 ML VIAL IVP STA (16:24)
[2023-08-29] MEDS ORDERED: LORazepam 2 MG/ML INJ IV STA (16:24)
[2023-08-29] MEDS ORDERED: diphenhydrAMINE 50 MG/ML 1 ML VIAL IVP STA (16:24)
--- NOTE | 2023-08-29 16:36 | CT ---
EXAMINATION TYPE: CT brain alma wo con DATE OF EXAM: 08/29/2023 COMPARISON: None HISTORY: 57-year-old male Headache CT DLP: 3.9 mGycm Automated exposure control for dose reduction was used. Technique: Examination of the head was done in axial plane without intravenous contrast. Coronal and sagittal reconstructions performed. CT of the cervical spine was obtained in axial plane without intravenous injection of contrast mater ial. Coronal and sagittal reformatted images were obtained from the axial views for evaluation of f ractures, spinal alignment and canal. FINDINGS: Head: There is no evidence of acute intracranial hemorrhage, acute ischemic changes, mass, mass-effect, or extra-axial fluid collection. There is no effacement of cerebral sulci or basal subarachnoid cister ns. There is no hydrocephalus. There is no midline shift. Hogan-white matter distinction is preserv ed. Mild mucosal thickening ethmoid air cells. Slight rightward nasal septal deviation. Orbits and globes are intact and mastoid air cells are well pneumatized. Previous anterior left frontal craniotomy flap. Underlying encephalomalacia left paramedian anterior superior left frontal lobe. Benign bilateral basal ganglionic calcifications. Cervical spine: No craniocervical junction abnormality, predental space widening, or prevertebral soft tissue swellin g. Circumferential soft tissue narrowing the airway at the level of the false cords, axial image 77. Mild to moderate multilevel spondylotic change. Assessment of the spinal canal from C4 to C5 and belo w is limited due to the elevated patient shoulders. Multilevel facet and uncovertebral joint arthropa thy. There are variable moderate neuroforaminal stenoses throughout. Moderate to severe at some level s. No acute fracture of the cervical spine. Alignment is maintained. Sagittal and coronal reformatted images confirm above findings. COMBINED IMPRESSION: 1. Previous anterior superior left frontal craniotomy flap with underlying encephalomalacia left para median left frontal lobe. Correlate for prior resection or prior vascular/traumatic insult. 2. Otherwise, no acute intracranial abnormality seen. 3. No acute fracture or malalignment of cervical spine. Moderate spondylotic change. Minimal moderate to severe neuroforaminal stenoses throughout. 4. Some circumferential soft tissue narrowing of the airway at the level of the false cords. This may be positional. Correlate with any symptoms and with direct visualization if indicated to exclude a m ucosal lesion here.
[2023-08-30] MEDS ORDERED: ACETAMINOPHEN TAB 500 MG TAB PO STA ×2 (00:19→06:33)
[2023-08-30] MEDS ORDERED: ONDANSETRON 4 MG/2 ML VIAL IVP STA (07:00)
[2023-08-30 07:09] LABS: Appearance,Urine Cloudy (Clear); Bilirubin,Urine Negative (Negative); Blood,Urine Negative (Negative); Calcium Oxalate Crystals,Urine Rare /hpf; Color,Urine Yellow; Glucose,Urine (UA) Negative (Negative); Ketones,Urine Trace (Negative); Leukocyte Esterase,Urine Negative (Negative); Mucus,Urine Few /hpf; Nitrite,Urine Negative (Negative); PH, Urine 5.5 (5.0-8.0); Protein,Urine Trace (Negative); Specific Gravity,Urine 1.026 (1.001-1.035); Urobilinogen,Urine <2.0 mg/dL (<2.0); WBC,Urine 2 /hpf (0-5)
[2023-08-30] MEDS ORDERED: LORazepam 2 MG/ML INJ IV STA (08:43)
[2023-08-30 10:24] LABS: Amphetamine Screen,Urine Not Detected (NotDetected); Cocaine Screen,Urine Not Detected (NotDetected); Opiate Screen,Urine Detected (NotDetected); Phencyclidine Screen,Urine Not Detected (NotDetected); Urn Cannabinoid Scrn Not Detected (NotDetected)
[2023-08-30 10:25] LABS: Barbiturate Screen,Urine Not Detected (NotDetected); Benzodiazepines Screen,Urine Detected (NotDetected); Methadone Screen, Urine Not Detected (NotDetected); Oxycodone Screen, Urine Not Detected (NotDetected); Tricyclic Antidepressant,Urine Not Detected (NotDetected)
[2023-08-30] MEDS: LORazepam 2 MG/ML INJ IV PRN (16:41)
[2023-08-31] MEDS: LORazepam 2 MG/ML INJ IV PRN (01:05)
[2023-08-31] MEDS ORDERED: LORazepam 2 MG/ML INJ IV PRN (06:21)
[2023-08-31] MEDS ORDERED: ACETAMINOPHEN TAB 325 MG TAB PO STA (07:35)
[2023-08-31 08:53] LABS: ALT 29 U/L (4-49); AST 31 U/L (17-59); African American GFR (CKD) >90 (>60 ml/min/1.73 sqM); Albumin 4.1 g/dL (3.5-5.0); Alkaline Phosphatase 96 U/L (38-126); Anion Gap 12 mmol/L; Blood Urea Nitrogen 19 mg/dL (9-20); Calcium 9.3 mg/dL (8.4-10.2); Carbon Dioxide 21 mmol/L (22-30); Chloride 102 mmol/L (98-107); Glucose 95 mg/dL (74-99); Non-African American GFR(CKD) >90 (>60 ml/min/1.73 sqM); Potassium 4.3 mmol/L (3.5-5.1); Sodium 135 mmol/L (137-145); Total Bilirubin 0.9 mg/dL (0.2-1.3); Total Protein 6.9 g/dL (6.3-8.2)
[2023-08-31 09:36] VITALS: BP 118/75; PULSE 87
[2023-08-31] MEDS ORDERED: METOCLOPRAMIDE 5 MG TAB PO PRN (10:31)
[2023-08-31] MEDS ORDERED: SUMAtriptan succinate 50 MG TAB PO PRN (10:31)
[2023-08-31] MEDS ORDERED: LORazepam 1 MG TAB PO STA (11:40)
[2023-08-31] MEDS ORDERED: LORazepam 0.5 MG TAB PO STA (11:41)
[2023-08-31] MEDS ORDERED: LORazepam 2 MG/ML INJ IV STA (11:43)
[2023-08-31] MEDS ORDERED: NON FORMULARY DRUG (Topiramate [Topamax] 50 MG Tablet) PO SCH (21:00)
[2023-08-31] MEDS ORDERED: PROPRANOLOL 20 MG TAB PO SCH (21:00)
[2023-08-31] MEDS ORDERED: NON FORMULARY DRUG (Omeprazole [Omeprazole] 20 MG Capsule.Dr) PO SCH (21:00)
[2023-09-01] MEDS ORDERED: modafiniL 100 MG TAB PO SCH (09:00)
[2023-09-01] MEDS ORDERED: NON FORMULARY DRUG (Testosterone [Androgel 1.62%] 75 GM Gel.Md.Pmp) TOPICAL SCH (09:00)
[2023-09-01] MEDS ORDERED: NON FORMULARY DRUG (Fluoxetine Hcl [Prozac] 40 MG Capsule) PO SCH (09:00)
[2023-09-01] MEDS ORDERED: buPROPion XL 150 MG TAB.ER.24H PO SCH (09:00)
[2023-09-01] MEDS ORDERED: amLODIPine 5 MG TAB PO SCH (09:00)
[2023-09-01] MEDS ORDERED: SPIRONOLACTONE 25 MG TAB PO SCH (09:00)
[2023-09-01] MEDS ORDERED: PRAVASTATIN SODIUM 20 MG TAB PO SCH (09:00)
[2023-09-01] MEDS ORDERED: IRBESARTAN 300 MG PO SCH (09:00)
== END 2023-08-31 15:17 ==
LOC: EC 12:30
DX: R45.851 Suicidal ideations (principal); F10.129 Alcohol abuse with intoxication, unspecified; F10.10 Alcohol abuse, uncomplicated; R00.0 Tachycardia, unspecified; I10 Essential (primary) hypertension; F41.9 Anxiety disorder, unspecified; F32.A Depression, unspecified; Z79.899 Other long term (current) drug therapy; Z91.010 Allergy to peanuts; Z20.822 Contact with and (suspected) exposure to COVID-19
CPT/HCPCS: 99285; 96374; 96375 ×5; 96376 ×5; 96361 ×5; 82075; 36415 ×2; 93005; 80053 ×2; 83605 ×2; 83735; 84100; 84484; 85025; 85610; 85730; 81001; 80306; 80320; 87635; 72125; 70450; J2060 ×3; J2270; J1200; J0780; J2405; J1885

== ENCOUNTER 2024-11-19 14:17 | Inpatient (IN) | payer OTHER ==
[2024-11-19] MEDS ORDERED: MAGNESIUM HYDROXIDE 2,400 MG/30 ML CUP PO PRN (14:55)
[2024-11-19] MEDS ORDERED: LORazepam 2 MG/ML INJ IM PRN (14:57)
[2024-11-19] MEDS ORDERED: haloperidoL 5 MG TAB PO PRN (14:57)
[2024-11-19] MEDS ORDERED: LORazepam 1 MG TAB PO PRN (14:57)
[2024-11-19] MEDS: LORazepam 1 MG TAB PO PRN (21:12)
[2024-11-20] MEDS: ACETAMINOPHEN TAB 325 MG TAB PO PRN (07:21)
[2024-11-20] MEDS: NICOTINE 21MG/24HR PATCH TRANSDERM SCH (08:52)
[2024-11-20] MEDS: amLODIPine 5 MG TAB PO SCH (08:54)
[2024-11-20] MEDS: PANTOPRAZOLE 40 MG TABLET PO SCH (08:54)
[2024-11-20] MEDS: LOSARTAN 50 MG TAB PO SCH (08:54)
[2024-11-20] MEDS: IBUPROFEN 600 MG TAB PO PRN (08:55)
[2024-11-20 10:19] LABS: ALT 29 U/L (4-49); AST 80 U/L (17-59); Albumin 3.9 g/dL (3.5-5.0); Alkaline Phosphatase 94 U/L (38-126); Bilirubin, Delta 0.1 mg/dL (0.0-0.2); Bilirubin,Unconjugated 0.7 mg/dL (0.0-1.1); Total Bilirubin 0.8 mg/dL (0.2-1.3); Total Protein 6.3 g/dL (6.3-8.2)
[2024-11-20] MEDS: FLUoxetine HCL 20 MG CAP PO SCH (11:06)
[2024-11-20] MEDS: THIAMINE 100 MG TAB PO SCH (11:06)
[2024-11-20] MEDS: FOLIC ACID 1 MG TAB PO SCH (11:06)
[2024-11-20] MEDS: MULTIVITAMINS, THERA 1 EACH TAB PO SCH (11:06)
[2024-11-20] MEDS: PRAVASTATIN SODIUM 20 MG TAB PO SCH (11:06)
[2024-11-20] MEDS: MAG HYDROX/AL HYDROX/SIMETH 355 ML BOTTLE PO PRN (11:07)
[2024-11-20] MEDS: LORazepam 1 MG TAB PO PRN (11:16)
[2024-11-20] MEDS ORDERED: ONDANSETRON 4 MG TAB PO PRN (11:41)
[2024-11-20] MEDS: SUMAtriptan succinate 50 MG TAB PO STA (12:35)
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
[2024-11-20] MEDS: DULoxetine HCL 20 MG CAPSULE.DR PO SCH (15:45)
[2024-11-20] MEDS: chlordiazePOXIDE 25 MG CAP PO SCH (15:45)
--- NOTE | 2024-11-20 17:38 | P.MDCNMH ---
History of Present Illness H&P Date: 11/20/24 Chief Complaint: Medical evaluation 58-year-old male with hypertension, hyperlipidemia presented for mental health evaluation. Medicine was consulted for medical management. Patient has no complaints at this time. He reports good compliance with his primary care physician and follow the recommendations regarding his medication management. He denies any present issues and his only concern is when he is able to be discharged. He is hemodynamically stable. His lab work demonstrates mildly elevated AST to 80, ALT is 29, TSH is 1.08. A1c is 5.9. Gen: In NAD, non-toxic HEENT: normocephalic, atraumatic, hearing acuity is intant, mucous membranes moist CVS: perfusing all extremities well, no pitting edema, Respiratory: symmetric chest expansion, no accessory muscle use, GI: soft, NTTP, ND, : no suprapubic tenderness, no CVA tenderness MSK/Derm: no rashes, cyanosis Neuro: CN II-XII intact, no motor weakness, Psych: cooperative, euthymic mood, judgment and insight is intact Assessment/plan: Hypertension Hyperlipidemia -Resume patient's home losartan, amlodipine, pravastatin Alcohol abuse Elevated AST -Agree with Librium, Ativan as needed -Agree with thiamine -His AST elevation is likely related to alcohol abuse Thank you for this consultation, reach out with any questions or concerns please. Past Medical History Past Medical History: Hypertension Additional Past Medical History / Comment(s): hernia, HTN, R knee replacement, R foot surgery History of Any Multi-Drug Resistant Organisms: None Reported Past Surgical History: Hernia Repair, Orthopedic Surgery Additional Past Surgical History / Comment(s): R knee replacement, R foot surgery Past Psychological History: Anxiety, Depression Additional Psychological History / Comment(s): clean and sober for 7 years, relaspe on Mother's Day 2022, with suicidal intent Smoking Status: Never smoker Past Alcohol Use History: Daily Additional Past Alcohol Use History / Comment(s): clean for 7 years, relapse Past Drug Use History: None Reported - Past Family History Father Family Medical History: Hypertension, Myocardial Infarction (NH) Medications and Allergies Home Medications Medication Instructions Recorded Confirmed Type Irbesartan 300 mg PO DAILY 03/20/23 11/19/24 History Omeprazole 20 mg PO BID 03/20/23 11/19/24 History Pravastatin Sodium [Pravachol] 20 mg PO DAILY 03/20/23 11/19/24 History Testosterone [Androgel 1.62%] 2 pump TOPICAL DAILY 03/20/23 11/19/24 History amLODIPine [Norvasc] 5 mg PO DAILY 03/20/23 11/19/24 History FLUoxetine HCL [PROzac] 60 mg PO DAILY 11/19/24 11/19/24 History Allergies Allergy/AdvReac Type Severity Reaction Status Date / Time peanut Allergy Anaphylaxis Verified 11/19/24 15:16 Physical Exam Osteopathic Statement: *. No significant issues noted on an osteopathic structural exam other than those noted in the History and Physical/Consult. Vitals: Vital Signs Temp Pulse Resp BP BP Pulse Ox 11/20/24 15:50 87 136/85 11/20/24 12:34 104 H 126/75 11/20/24 11:10 104 H 158/105 11/20/24 08:57 108 H 167/106 11/20/24 07:02 98.4 F 68 17 153/87 97 Cranial Nerve Examination - Cranial Nerves Cranial Nerve II- Optic: Intact Cranial Nerve III- Oculomotor: Intact Cranial Nerve IV- Trochlear: Intact Cranial Nerve V- Trigeminal: Intact Cranial Nerve - Abducens: Intact Cranial Nerve VII- Facial: Intact Cranial Nerve VIII- Auditory: Intact Cranial Nerve IX- Glossopharyngeal: Intact Cranial Nerve X- Vagus: Intact Cranial Nerve XI- Accessory: Intact Cranial Nerve XII- Hypoglossal: Intact Results Labs: Abnormal Lab Results - Last 24 Hours (Table) 11/20/24 Range/Units 09:18 AST 80 H (17-59) U/L
[2024-11-20] MEDS: MIRTAZAPINE 15 MG TAB PO SCH (21:38)
[2024-11-21 08:40] LABS: LDL Cholesterol,Calculated 56.5 mg/dL (0.0-131.0)
[2024-11-21] MEDS: NON FORMULARY DRUG (Testosterone [Androgel 1.62%] 75 GM Gel.Md.Pmp) TOPICAL SCH (08:57)
[2024-11-21 11:23] LABS: Glucose,Whole Blood 91 mg/dL (70-110)
[2024-11-21] MEDS ORDERED: SUMAtriptan succinate 50 MG TAB PO PRN (11:32)
--- NOTE | 2024-11-21 11:36 | P.PN ---
Progress Note - Text Progress Note Date: 11/21/24 Interval history: Patient was seen today laying in bed and was directable and agreeable to speak with mortgage underwriter. Patient apparently was feeling lightheaded earlier. He claims that he is having a headache at this time. His C was having a bit elevated however patient is not having any visible signs of withdrawal including sweats, tremors and vital signs appear to be fairly stable. Patient claims that he is not having significant depression at this time, denies any anxiety at this time. States that he wants something "to sleep" and claims that he wants to wake up feeling better. He was asking about potential discharge dates. Has not been going to many groups. Claims that he is able to sleep on and off last night. At this time patient denies any suicidal or homicidal ideations intent or plan. Denies any Auditory or visual hallucinations. Patient denies any side effects from the medications and has been compliant with meds. Mental status exam: General Appearance: Patient appears to be overweight, unshaven, stated age is alert, directable, and attempts to be cooperative. Behavior: No agitated behavior. Patient is calm and directable, laying in bed attempts to cooperate Speech: Patient's speech is fluent and nonpressured. Mood/Affect: Mood is improving mildly, affect is congruent and constricted. Suicidality/Homicidality: Patient denies having any suicidal or homicidal ideation intent or plan. Perceptions: Patient denies any auditory or visual hallucinations. Though content/process: There is no evidence of any delusional thought content and thought process is linear and goal-directed. [place]. Memory and concentration: AOX3, grossly intact for the purposes of this session Judgment and insight: Poor, improving mildly Assessment/Plan: Continue with current diagnosis. Patient continues to meet criteria for inpatient psychiatric admission for symptom stabilization and safety. Patient will be maintained on current psychotropic medication regimen, will give 1 dose of Seroquel now. Increase Remeron to 30 mg nightly for mood/insomnia. Can continue with CIWA protocol as needed Ativan and also Librium 4 times a day. Monitor for medication compliance and for any psychotropic medication side effects. Will continue to monitor ongoing response to treatment. Encouraged participation in milieu.
[2024-11-21] MEDS: QUEtiapine 50 MG TAB PO STA (12:05)
[2024-11-21 12:12] LABS: Basophils % (A) 0 %; Eosinophils # (A) 0.2 k/uL (0-0.7); Eosinophils % (A) 3 %; HCT 44.1 % (39.0-53.0); HGB 15.2 gm/dL (13.0-17.5); Lymphocytes # (A) 1.8 k/uL (1.0-4.8); Lymphocytes % (A) 26 %; MCH 30.9 pg (25.0-35.0); MCHC 34.6 g/dL (31.0-37.0); MCV 89.4 fL (80.0-100.0); Monocytes # (A) 0.5 k/uL (0-1.0); Monocytes % (A) 7 %; Neutrophils # (A) 4.4 k/uL (1.3-7.7); Neutrophils % (A) 63 %; Platelet Count 341 k/uL (150-450); RBC 4.93 m/uL (4.30-5.90); RDW 13.2 % (11.5-15.5); WBC 6.9 k/uL (3.8-10.6)
[2024-11-21] MEDS: DULoxetine HCL 30 MG CAPSULE.DR PO SCH (21:47)
[2024-11-21] MEDS: MIRTAZAPINE 15 MG TAB PO SCH (21:47)
--- NOTE | 2024-11-22 12:23 | P.PN ---
Progress Note - Text Progress Note Date: 11/22/24 Interval History: Patient was seen laying in bed and was directable and agreeable to speak with inspector automatic typewriter in the room. Patient reportedly suffered 2 falls yesterday. EKG was within normal limits, vital signs stable today. Patient does admit to hitting his head on the doorway of the bathroom yesterday and his forehead was mildly tender to touch this morning. He denied any loss of consciousness but does report lightheadedness and fatigue which is likely due to the Librium patient is on. Patient did not feel as though CT head was appropriate as the injury was not significant. CIWA's have been ranging from 0-9. He is not agreeable with rehab at this time, declined naltrexone as well. He denied any history of seizures related to alcohol withdrawal. He states being unsure how severe his depression is today given the fatigue. At this time patient denies any suicidal or homicidal ideations, intent or plan. Patient denies any auditory, visual hallucinations and denies any paranoia or delusions. Patient has been compliant with meds. Mental Status Exam: General Appearance: Patient appears to be stated age is alert, directable, and cooperative. Behavior: Patient is calmly laying without any agitated behavior. Speech: Patient's speech is fluent and nonpressured. Mood/Affect: Mood is improving mildly, affect is congruent and blunted. Suicidality/Homicidality: Patient denies having any suicidal or homicidal ideation intent or plan. Perceptions: Patient denies any visual hallucinations and denies any auditory hallucinations Though content/process: There is no evidence of any delusional thought content and thought process is linear and goal-directed. Memory and concentration: AOX3, grossly intact for the purposes of this session Judgment and insight: Improving mildly Assessment Major depressive disorder Alcohol use disorder Plan: -Patient continues to meet criteria for inpatient psychiatric admission for symptom stabilization and safety. Patient has signed adult voluntary form and medication consent and was placed in patient's chart. -Medications: Continue Remeron 30 mg at bedtime for mood/insomnia, Cymbalta 30 mg at bedtime for depression -When necessary Ativan and Haldol for agitation/aggression. -Labs: Reviewed, LFTs mildly elevated -CIWA protocol with Ativan PRN for ETOH withdrawal. Decreasing Librium to twice daily dosing today -SW on board for discharge planning. Encouraged the patient to participate in milieu. Anticipate discharge back home with on Friday. Patient not agreeable with rehab at this time
[2024-11-22 14:04] LABS: Glucose,Whole Blood 280 mg/dL (70-110)
[2024-11-22] MEDS: HALOPERIDOL LACTATE 5 MG/ML 1 ML VIAL IM PRN (14:04)
--- NOTE | 2024-11-22 15:12 | CT ---
EXAMINATION TYPE: CT brain wo con DATE OF EXAM: 11/22/2024 2:53 PM COMPARISON: 08/29/2023 CLINICAL INDICATION: Male, 58 years old with history of fall, hit head, Fall, hit head, dizzy TECHNIQUE: CT of the brain is performed utilizing 3 mm thick sections through the posterior fossa and 3 mm thick sections through the remaining calvarium. Study is performed within 24 hours of arrival to the hospital. Contrast used: mL of , (none if empty) CT DLP: 1184.90 mGycm, Automated exposure control for dose reduction was used. FINDINGS: No abnormal hyperdensity is present to suggest an acute intracranial hemorrhage. No mass lesion is evident. No acute infarcts are evident. There may be some old posttraumatic change along the left frontal lobe . There is a craniotomy in the left frontal variant. Ventricles and sulci are appropriate for the patient age. Paranasal sinuses and mastoid air cells within the [id number] are clear. IMPRESSION: 1. No acute intracranial process. Follow up MRI can be performed as clinically indicated. 2. 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 [facility], , 11/22/2024 3:10 PM
[2024-11-22] MEDS ORDERED: chlordiazePOXIDE 25 MG CAP PO SCH (21:00)
[2024-11-23 07:17] VITALS: RESP 16
[2024-11-23] MEDS: chlordiazePOXIDE 25 MG CAP PO ONE (07:53)
--- NOTE | 2024-11-23 11:42 | P.PN ---
Progress Note - Text Progress Note Date: 11/23/24 Interval History: Patient was seen laying in bed and was directable and agreeable to speak with blurb writer in the room. Sitter present at bedside. Patient had a very eventful day yesterday, falling several times with decreased orientation. CT head was performed which was negative for any acute processes or did reveal old appearing encephalomalacia in the left frontal lobe. Patient today was A&Ox3 however he did appear fatigued but denied any lightheadedness or dizziness. He denied any alcohol cravings and feels as though his depression has improved significantly. At this time patient denies any suicidal or homicidal ideations, intent or plan. Patient denies any auditory, visual hallucinations and denies any paranoia or delusions. Patient has been compliant with meds. Mental Status Exam: General Appearance: Patient appears to be stated age is fatigued but directable, and cooperative. Behavior: Patient is calmly laying without any agitated behavior. Speech: Patient's speech is fluent and nonpressured. Mood/Affect: Mood is improving mildly, affect is congruent and constricted. Suicidality/Homicidality: Patient denies having any suicidal or homicidal ideation intent or plan. Perceptions: Patient denies any visual hallucinations and denies any auditory hallucinations Though content/process: There is no evidence of any delusional thought content and thought process is linear and logical. Memory and concentration: AOX3, grossly intact for the purposes of this session Judgment and insight: Improving mildly Assessment Major depressive disorder Alcohol use disorder Plan: -Patient continues to meet criteria for inpatient psychiatric admission for symptom stabilization and safety. Patient has signed adult voluntary form and medication consent and was placed in patient's chart. -Medications: Continue Remeron 30 mg at bedtime for mood/insomnia, Cymbalta 30 mg at bedtime for depression -When necessary Ativan and Haldol for agitation/aggression. -Labs: Reviewed, CT head revealed old appearing encephalomalacia in the left frontal lobe -CIWA protocol with Ativan PRN for ETOH withdrawal. Librium tapered off today -SW on board for discharge planning. Encouraged the patient to participate in milieu. Anticipate discharge back home with tomorrow
[2024-11-24 07:03] VITALS: TEMP 97.9
[2024-11-24] MEDS: MIRTAZAPINE 15 MG TAB PO SCH (20:42)
[2024-11-25 07:08] VITALS: BP 132/84; PULSE 75
--- NOTE | 2024-11-25 14:41 | P.DS ---
Providers Date of admission: 11/19/24 14:19 Expected date of discharge: 11/25/24 Attending physician: Matilda Pickett MD Consults: 11/19/24 14:55 Consult Physician Routine Consulting Provider: Vanessa Parker Consult Reason/Comments: History and Physical, New Admission Do you want consulting provider notified?: Yes Primary care physician: Stated None - Discharge Diagnosis(es) (1) Major depressive disorder Status: Acute Priority: High (2) Alcohol use disorder Status: Acute Priority: High Hospital Course: Admission HPI: Admission note was completed by Dr. Christopher " Patient presented to the hospital as a transfer from [facility]. Patient was on a petition and certificate. He was seen by EPS nurse and according to note "Patient presented to [facility] after being found in a parking lot minimally responsive after drinking a fifth of alcohol and taking 5 "sleeping pills" in an attempt to kill himself. Petition and clinical certificate completed related to suicidal ideation with plan and attempt. Patient has a history of suicidal ideation and inpatient hospitalizations with similar attempt in 2022. Patient was intoxicated when admitted to transferring facility and deemed to be in need of inpatient psychiatric hospitalization once sober and evaluated. " Patient was seen today at the bedside. He was agreeable to speak to script writer. He was fairly concrete, guarded and evasive. He claims that he was feeling depressed suicidal thoughts claimed that he wanted to "check out". States that he drank 1/5 of whiskey and also took about 12 sleeping pills from [id number]. States that he had no specific triggers or incidents that triggered him to do this. Does claim that he has been remodeling his house and claims that it has been stressful. He was fairly concrete during interaction, inappropriate affect. He was endorsing depression and anxiety. Minimizing his drinking claims that he only does it occasionally, is having minor withdrawal symptoms at this time including shakes see was were elevated. Sleep and appetite are fair. Patient denies any suicidal or homicidal ideations intent or plan. At this time patient denies any auditory or visual hallucinations. Patient denies any flight of ideas racing thoughts and increased in goal directed behavior. Patient admits to using alcohol occasionally, minimizing. Denies any other recreational drug use" Hospital course: Upon admission to the unit patient was directable and agreeable to commence treatment and signed adult voluntary form.. Patient got along well with other patients on the unit and followed unit protocol. Patient was compliant with the medications, reporting fatigue however this improved towards the end of his hospitalization. Patient was started on Cymbalta 30 mg at bedtime for depression, Remeron increased to 30 mg at bedtime for mood/insomnia however this was tapered down to 15 mg at bedtime given lingering sedation. Patient was also started on Librium related to alcohol withdrawal however patient suffered several falls on the unit with somnolence and thus this was tapered off. Patient did receive a CT head which was negative for acute infarcts however did reveal old appearing encephalomalacia in the left frontal lobe. Patient spoke of his stressors and engaged in therapy both group and individual. Patient was also seen by medical team for history and physical exam. Throughout the course of the hospitalization patient gradually improved with regards to mood, anxiety, sleep and returned back to their baseline level of functioning. On the day of patient denied any suicidal or homicidal ideations intent or plan denied any auditory or visual hallucinations. The patient denied any access to guns or weapons. Patient denied any paranoia and did not endorse any delusions. Patient does have a significant history of substance abuse and was counseled on abstaining from all substances including alcohol and marijuana. Patient was offered however declined inpatient substance-abuse rehab. Both patient and states that the relapse was a 1 day event and that he was adamant on continuing his Antabuse on discharge. Patient was also counseled on the medications and need for regular compliance and was encouraged to follow-up with their outpatient appointment for mental health and also for primary care. Prior to discharge a family meeting will be arranged by social media designer to answer any questions and ensure safety upon discharge including making sure that guns/weapons are either removed from the home or locked away. Patient to be discharged back home with with [facility] follow-up. Mental status exam: General Appearance: Patient appears to be stated age is alert, pleasant, and cooperative. Patient is in no acute distress and has improved hygiene and grooming Behavior: Patient is calmly seated without any agitated behavior. Speech: Patient's speech is fluent and nonpressured. Mood/Affect: Patient reports their mood is "good", affect is congruent and euthymic, more bright. Suicidality/Homicidality: Patient denies having any suicidal or homicidal ideation intent or plan. Perceptions: Patient denies any auditory or visual hallucinations. Though content/process: There is no evidence of any delusional thought content and thought process is linear and goal-directed. More future oriented Memory and concentration: AOX3, grossly intact for the purposes of this session. Can spell "WORLD" backwards correctly. Judgment and insight: Fair Impression: Major depressive disorder Alcohol use disorder Plan: -Continue with discharge today as patient has improved and stabilized psychiatrically and is not currently an imminent threat to themself and/or others. -Continue medications: Remeron 15 mg at bedtime, Cymbalta 30 mg at bedtime -Patient was counseled on the need for medication compliance and appropriate follow-up at mental health and also primary care for medical issues. Patient verbalized understanding and agreed. -Social work to help coordinate patients discharge today arrange for and conduct family meeting to ensure safety upon discharge and answer any questions/concerns. also to ensure safe home environment that guns/weapons are either removed from the home or locked away. Social work also to arrange for patients follow up appointments with [facility] for psychiatric care along with follow up with primary care provider. -Patient counseled on abstaining from recreational drugs and marijuana and alcohol. Was informed/educated on the adverse effects on their physical and mental health. Patient verbally agreed and understood. Patient was offered substance abuse treatment however declined at this time. -Patient was instructed to return to the hospital or seek immediate medical care if their psychiatric or medical symptoms do worsen or reoccur. Abnormal Labs 11/20/24 11/22/24 09:18 13:51 POC Glucose (mg/dL) 280 H AST 80 H Triglycerides 170.00 H Vital Signs Temp 97.9 F 11/24/24 07:02 Pulse 75 11/25/24 07:08 Resp 16 11/23/24 06:38 BP 132/84 11/25/24 07:08 Pulse Ox 97 11/24/24 07:02 FiO2 Allergies Allergy/AdvReac Type Severity Reaction Status Date / Time peanut Allergy Anaphylaxis Verified 11/19/24 15:16 Patient Condition at Discharge: Stable Plan - Discharge Summary New Discharge Prescriptions: New Losartan [Cozaar] 100 mg PO DAILY tab Multivitamins, Thera [Multivitamin (formulary)] 1 each PO DAILY #14 tab Mirtazapine [Remeron] 15 mg PO HS 14 Days #14 tab Thiamine [Vitamin B-1] 100 mg PO DAILY 14 Days #14 tab DULoxetine HCL [Cymbalta] 30 mg PO HS 14 Days #14 cap Folic Acid 1 mg PO DAILY 14 Days #14 tab amLODIPine [Norvasc] 5 mg PO DAILY tab Pravastatin Sodium [Pravachol] 20 mg PO DAILY tab Pantoprazole [Protonix] 40 mg PO AC-BRKFST tab Continue Testosterone [Androgel 1.62%] 2 pump TOPICAL DAILY Pravastatin Sodium [Pravachol] 20 mg PO DAILY amLODIPine [Norvasc] 5 mg PO DAILY Discontinued Irbesartan 300 mg PO DAILY FLUoxetine HCL [PROzac] 60 mg PO DAILY Omeprazole 20 mg PO BID Discharge Medication List Pravastatin Sodium [Pravachol] 20 mg PO DAILY 03/20/23 [History] Testosterone [Androgel 1.62%] 2 pump TOPICAL DAILY 03/20/23 [History] amLODIPine [Norvasc] 5 mg PO DAILY 03/20/23 [History] DULoxetine HCL [Cymbalta] 30 mg PO HS 14 Days #14 cap 11/25/24 [Rx] Folic Acid 1 mg PO DAILY 14 Days #14 tab 11/25/24 [Rx] Losartan [Cozaar] 100 mg PO DAILY tab 11/25/24 [Rx] Mirtazapine [Remeron] 15 mg PO HS 14 Days #14 tab 11/25/24 [Rx] Multivitamins, Thera [Multivitamin (formulary)] 1 each PO DAILY #14 tab 11/25/24 [Rx] Pantoprazole [Protonix] 40 mg PO AC-BRKFST tab 11/25/24 [Rx] Pravastatin Sodium [Pravachol] 20 mg PO DAILY tab 11/25/24 [Rx] Thiamine [Vitamin B-1] 100 mg PO DAILY 14 Days #14 tab 11/25/24 [Rx] amLODIPine [Norvasc] 5 mg PO DAILY tab 11/25/24 [Rx] Follow up Appointment(s)/Referral(s): [facility] [Outside] - 11/30/24 3:00 pm (11-30-24 at 3:00 with Kenrick Robertson 12-02-24 at 2:00 with ORLANDO Whitmore Both at the [place] office) [facility] [NON-STAFF] - 1 Week Patient Instructions/Handouts: Depression (DC), Abuse of Alcohol (DC) Activity/Diet/Wound Care/Special Instructions: [facility] Discharge Info Avoid the use of street drugs and alcohol. Take all medications as prescribed. When you are in need of refills on your medications, please contact your outpatient medical provider and/or outpatient psychiatrist. Please go to your scheduled outpatient appointments for aftercare treatment. If symptoms return or become worse, call the crisis line at or and/or visit the nearest emergency room for assistance. [employer] Suicide and Crisis Lifeline - call or text 925. Discharge Disposition: HOME SELF-CARE
== END 2024-11-25 12:30 | disposition home or self-care (01) | DRG 881 ==
LOC: 3MHU 14:19
PROVIDERS: ADMIT Psychiatry & Neurology Psychiatry; ATTEND Psychiatry & Neurology Psychiatry
DX: F32.9 Major depressive disorder, single episode, unspecified (principal); F10.139 Alcohol abuse with withdrawal, unspecified; R45.851 Suicidal ideations; G93.89 Other specified disorders of brain; I10 Essential (primary) hypertension; E78.5 Hyperlipidemia, unspecified; F41.9 Anxiety disorder, unspecified; G47.00 Insomnia, unspecified; R74.01 Elevation of levels of liver transaminase levels; Z91.51 Personal history of suicidal behavior; Z79.899 Other long term (current) drug therapy; Z96.651 Presence of right artificial knee joint
CPT/HCPCS: 70450; 80061; 80076; 83036; 84443; 85025; 93005